=== PATIENT | male | born 1985 | race Caucasian/White ===

== ENCOUNTER 2017-10-28 17:30 | Inpatient (IN) | payer OTHER ==
[~2017-10-28] VITALS: Ht 180.3 cm; Wt 56.7 kg
[2017-10-28] MEDS ORDERED: MIRALAX 17 GM POWD.PACK PO PRN (21:00)
[2017-10-28] MEDS ORDERED: DIAZEPAM 10 MG TABLET PO PRN ×2 (21:00)
[2017-10-28] MEDS ORDERED: diphenhydrAMINE 50 MG CAPSULE PO PRN (21:00)
[2017-10-28] MEDS ORDERED: DIAZEPAM 5 MG TABLET PO PRN (21:00)
[2017-10-28] MEDS ORDERED: LORAZEPAM 2 MG/1 ML VIAL IM PRN (21:00)
[2017-10-28] MEDS ORDERED: ONDANSETRON ODT 4 MG TAB.RAPDIS SL PRN (21:00)
[2017-10-28] MEDS ORDERED: DICYCLOMINE HCL 20 MG TABLET PO PRN (21:00)
[2017-10-28] MEDS ORDERED: MAG HYDROX/AL HYDROX/SIMETH 30 ML LIQUID UDC PO PRN (21:00)
[2017-10-28] MEDS ORDERED: LOPERAMIDE HCL 2 MG CAPSULE PO PRN ×2 (21:00)
[2017-10-28] MEDS ORDERED: NICOTINE POLACRILEX 4 MG GUM-PK OF TEN BC PRN (21:00)
[2017-10-28] MEDS ORDERED: MAGNESIUM HYDROXIDE 30 ML LIQUID UDC PO PRN (21:00)
[2017-10-28] MEDS ORDERED: CLONIDINE HCL 0.1 MG TABLET PO PRN (21:00)
[2017-10-28] MEDS ORDERED: ONDANSETRON 4 MG/2 ML VIAL IM PRN (21:00)
[2017-10-28 21:46] LABS: *AMPHETAMINE, URINE NEGATIVE (NEGATIVE); *BARBITURATE, URINE NEGATIVE (NEGATIVE); *CANNABINOID, URINE NEGATIVE (NEGATIVE); *COCCAINE, URINE NEGATIVE (NEGATIVE); *OPIATE, URINE NEGATIVE (NEGATIVE); *PHENCYCLIDINE SCREEN,URINE NEGATIVE (NEGATIVE)
[2017-10-28 21:48] LABS: BASOPHILS # (AUTO) 0.1 K/uL (0.0-8.0); BASOPHILS % (AUTO) 1.2 % (0.0-2.0); EOSINOPHILS # (AUTO) 0.4 K/uL (0.0-0.7); EOSINOPHILS % (AUTO) 4.5 % (0.0-7.0); HEMOGLOBIN 11.9 g/dL (12.5-16.3); MEAN CORPUSCULAR HEMOGLOBIN 31.7 uug (23.8-33.4); MEAN CORPUSCULAR HGB CONC 33 g/dL (32.5-36.3); MEAN CORPUSCULAR VOLUME 96.1 fL (73.0-96.2); MONOCYTES # (AUTO) 1.7 K/uL (2.0-10.0); MONOCYTES % (AUTO) 17.9 % (0.0-11.0); NEUTROPHILS # (AUTO) 5.3 K/uL (1.8-8.9); NEUTROPHILS % (AUTO) 55.4 % (38.5-71.5); PLATELET COUNT (AUTO) 282 K/uL (152-348); RED BLOOD CELL COUNT(AUTO) 3.75 MIL/uL (4.06-5.63); WHITE BLOOD COUNT (AUTO) 9.6 K/uL (3.6-10.2)
[2017-10-28 21:55] LABS: ETHANOL < 3 MG/DL (0-0)
[2017-10-28 21:57] LABS: ALANINE AMINOTRANSFERASE 64 U/L (16-63); ALKALINE PHOSPHATASE 82 U/L (50-136); AMYLASE 291 U/L (25-115); ASPARTATE AMINOTRANSFERASE 70 U/L (15-37); BILIRUBIN,TOTAL 0.3 mg/dL (0.2-1.0); CARBON DIOXIDE 31 mmol/L (21-32); CHLORIDE 102 mmol/L (98-107); CREATININE 0.7 mg/dL (0.6-1.3); GLUCOSE 112 mg/dL (74-106); MAGNESIUM 1.8 mg/dL (1.8-2.4); POTASSIUM 4.1 mmol/L (3.5-5.1); TOTAL PROTEIN, SERUM 6.7 g/dL (6.4-8.2); UREA NITROGEN, BLOOD 6 mg/dL (7-18)
[2017-10-28] MEDS ORDERED: DIAZEPAM 10 MG TABLET PO SCH (22:00)
[2017-10-28 23:20] LABS: EOSINOPHILS % (MANUAL) 4 % (0-8); LYMPHOCYTES % (MANUAL) 21 % (20-40); MONOCYTES % (MANUAL) 12 % (2-10); NEUTROPHILS % (MANUAL) 63 % (42-75)
[2017-10-29 08:00] VITALS: BP 105/61
[2017-10-29] MEDS: FOLIC ACID 1 MG TABLET PO SCH (08:37)
[2017-10-29] MEDS: DIAZEPAM 10 MG TABLET PO SCH ×4 (08:37→21:04)
[2017-10-29] MEDS: MULTIVITAMINS,THERAPEUTIC TABLET PO SCH (08:37)
[2017-10-29] MEDS: LEVETIRACETAM 500 MG TABLET PO SCH ×2 (08:37→21:04)
[2017-10-29] MEDS: THIAMINE HCL 100 MG TABLET PO SCH (08:37)
[2017-10-29] MEDS: GABAPENTIN 300 MG CAPSULE PO SCH ×3 (08:40→21:04)
[2017-10-29] MEDS: NEOMY/BACITRAC/POLYMI OINT 28.35 GM TUBE TOP SCH ×2 (08:42→17:00)
[2017-10-29] MEDS ORDERED: TUBERCULIN,PURIF.PROT.DERIV. 5 TU/0.1 ML TEST ID ONE (09:00)
[2017-10-29 12:00] VITALS: BP 116/72
[2017-10-29] MEDS ORDERED: CHOL10005 PO (12:21)
[2017-10-29] MEDS ORDERED: FOLI1TAB16 PO (12:21)
[2017-10-29 16:00] VITALS: BP 100/58
[2017-10-29 20:00] VITALS: BP 103/67
[2017-10-30] VITALS: BP 112/76
[2017-10-30 08:00] VITALS: BP 104/69
[2017-10-30 08:06] LABS: HEPATITIS B SURFACE AG Negative (Negative)
[2017-10-30] MEDS: THIAMINE HCL 100 MG TABLET PO SCH (08:47)
[2017-10-30] MEDS: GABAPENTIN 300 MG CAPSULE PO SCH ×4 (08:47→21:23)
[2017-10-30] MEDS: IBUPROFEN 600 MG TABLET PO PRN ×2 (08:47→21:22)
[2017-10-30] MEDS: LEVETIRACETAM 500 MG TABLET PO SCH ×2 (08:47→21:22)
[2017-10-30] MEDS: FOLIC ACID 1 MG TABLET PO SCH (08:47)
[2017-10-30] MEDS: DIAZEPAM 10 MG TABLET PO SCH ×3 (08:47→21:23)
[2017-10-30] MEDS: MULTIVITAMINS,THERAPEUTIC TABLET PO SCH (08:47)
[2017-10-30] MEDS: NEOMY/BACITRAC/POLYMI OINT 28.35 GM TUBE TOP SCH ×2 (08:48→16:35)
[2017-10-30 12:00] VITALS: BP 106/72
[2017-10-30 16:00] VITALS: BP 123/83
[2017-10-30 20:00] VITALS: BP 111/71
[2017-10-31 08:00] VITALS: BP 114/71
[2017-10-31] MEDS: MULTIVITAMINS,THERAPEUTIC TABLET PO SCH (08:54)
[2017-10-31] MEDS: LEVETIRACETAM 500 MG TABLET PO SCH ×2 (08:54→20:43)
[2017-10-31] MEDS: NEOMY/BACITRAC/POLYMI OINT 28.35 GM TUBE TOP SCH ×2 (08:54→17:12)
[2017-10-31] MEDS: FOLIC ACID 1 MG TABLET PO SCH (08:54)
[2017-10-31] MEDS: THIAMINE HCL 100 MG TABLET PO SCH (08:54)
[2017-10-31] MEDS: GABAPENTIN 300 MG CAPSULE PO SCH ×3 (08:55→20:43)
[2017-10-31] MEDS ORDERED: DIAZEPAM 5 MG TABLET PO SCH (09:00)
[2017-10-31 12:00] VITALS: BP 130/78
[2017-10-31] MEDS: DIAZEPAM 5 MG TABLET PO SCH ×2 (12:09→17:11)
[2017-10-31] MEDS: IBUPROFEN 600 MG TABLET PO PRN ×2 (14:37→20:44)
[2017-10-31 16:00] VITALS: BP 119/70
[2017-10-31 20:00] VITALS: BP 117/75
[2017-10-31] MEDS ORDERED: DIAZEPAM 10 MG TABLET PO SCH (21:00)
[2017-11-01 02:44] VITALS: BP 111/76
[2017-11-01 04:00] VITALS: BP 106/79
[2017-11-01 08:00] VITALS: BP 113/68
[2017-11-01] MEDS: FOLIC ACID 1 MG TABLET PO SCH (08:30)
[2017-11-01] MEDS: GABAPENTIN 300 MG CAPSULE PO SCH ×3 (08:30→21:05)
[2017-11-01] MEDS: LEVETIRACETAM 500 MG TABLET PO SCH ×2 (08:30→21:05)
[2017-11-01] MEDS: MULTIVITAMINS,THERAPEUTIC TABLET PO SCH (08:30)
[2017-11-01] MEDS: THIAMINE HCL 100 MG TABLET PO SCH (08:31)
[2017-11-01] MEDS ORDERED: DIAZEPAM 5 MG TABLET PO SCH ×2 (09:00→15:00)
[2017-11-01 09:58] LABS: *BILIRUBIN,URIN NEGATIVE (NEGATIVE); *BLOOD, URINE 2+ (NEGATIVE); *CLARITY,URINE CLEAR (CLEAR); *COLOR,URINE YELLOW (YELLOW); *KETONES,URINE NEGATIVE (NEGATIVE); *PROTEIN,URINE NEGATIVE (NEGATIVE); *UROBILINOGEN,URINE 0.2 E.U./dl (NORMAL); LEUKOCYTE ESTERASE ,URINE NEGATIVE (NEGATIVE); NITRITE, URINE NEGATIVE (NEGATIVE); UGLUCOSE NEGATIVE (NEGATIVE)
[2017-11-01 10:33] LABS: BACTERIA,URINE NONE SEEN /HPF (NONE SEEN); RBC,URINE 50-80 /HPF (0-3); SQUAMOUS EPITHELIAL CELL,UR FEW /HPF (NONE SEEN); WBC,URINE 0-3 /HPF (0-3)
[2017-11-01 12:00] VITALS: BP 122/94
[2017-11-01 16:00] VITALS: BP 127/84
[2017-11-01] MEDS: ACETAMINOPHEN 325 MG TABLET PO PRN ×2 (16:34→22:34)
[2017-11-01 20:00] VITALS: BP 109/72
[2017-11-01] MEDS ORDERED: DIAZEPAM 10 MG TABLET PO SCH (21:00)
[2017-11-01] MEDS: NICOTINE 14 MG/24HR PATCH TD PRN (21:05)
[2017-11-02] VITALS: BP 103/61
[2017-11-02 04:00] VITALS: BP 111/63
[2017-11-02 08:00] VITALS: BP 113/71
[2017-11-02] MEDS: GABAPENTIN 300 MG CAPSULE PO SCH ×3 (08:37→21:21)
[2017-11-02] MEDS: FOLIC ACID 1 MG TABLET PO SCH (08:37)
[2017-11-02] MEDS: THIAMINE HCL 100 MG TABLET PO SCH (08:37)
[2017-11-02] MEDS: MULTIVITAMINS,THERAPEUTIC TABLET PO SCH (08:37)
[2017-11-02] MEDS: DIAZEPAM 5 MG TABLET PO SCH ×2 (08:37→21:21)
[2017-11-02] MEDS: LEVETIRACETAM 500 MG TABLET PO SCH ×2 (08:38→21:22)
[2017-11-02] MEDS: ACETAMINOPHEN 325 MG TABLET PO PRN (08:42)
[2017-11-02] MEDS: LIDOCAINE 5% PATCH TD SCH (10:52)
[2017-11-02 12:00] VITALS: BP 129/89
[2017-11-02] MEDS ORDERED: BACL20TA PO (15:37)
[2017-11-02] MEDS ORDERED: CLON0.1T14 PO (15:37)
[2017-11-02] MEDS ORDERED: IBUP-1955 PO (15:37)
[2017-11-02] MEDS ORDERED: DIPH50CA37 PO (15:37)
[2017-11-02] MEDS ORDERED: DICY20TA28 PO (15:37)
[2017-11-02] MEDS ORDERED: LIDO30AD10 TD (15:37)
[2017-11-02] MEDS ORDERED: LEVE500T9 PO (15:37)
[2017-11-02] MEDS ORDERED: GABA-534 PO ×2 (15:37)
[2017-11-02 16:00] VITALS: BP 124/81
[2017-11-02 20:00] VITALS: BP 128/88
[2017-11-02] MEDS: NICOTINE 14 MG/24HR PATCH TD PRN (21:21)
[2017-11-02] MEDS: BACLOFEN 20 MG TABLET PO PRN (21:21)
[2017-11-03] VITALS: BP 110/81
[2017-11-03 04:00] VITALS: BP 112/83
[2017-11-03 08:00] VITALS: BP 96/62
[2017-11-03] MEDS ORDERED: DIAZEPAM 5 MG TABLET PO SCH (09:00)
[2017-11-03] MEDS: LEVETIRACETAM 500 MG TABLET PO SCH ×2 (09:29→21:48)
[2017-11-03] MEDS: MULTIVITAMINS,THERAPEUTIC TABLET PO SCH (09:31)
[2017-11-03] MEDS: FOLIC ACID 1 MG TABLET PO SCH (09:32)
[2017-11-03] MEDS: GABAPENTIN 300 MG CAPSULE PO SCH ×3 (09:32→21:48)
[2017-11-03] MEDS: THIAMINE HCL 100 MG TABLET PO SCH (09:32)
[2017-11-03] MEDS: BACLOFEN 20 MG TABLET PO PRN ×2 (09:42→21:48)
[2017-11-03] MEDS: LIDOCAINE 5% PATCH TD SCH (09:49)
[2017-11-03 12:00] VITALS: BP 127/78
[2017-11-03 16:00] VITALS: BP 120/86
[2017-11-03 20:00] VITALS: BP 122/85
[2017-11-04] VITALS: BP 116/79
[2017-11-04 04:00] VITALS: BP 110/76
[2017-11-04 08:19] VITALS: BP 117/84
[2017-11-04] MEDS: MULTIVITAMINS,THERAPEUTIC TABLET PO SCH (09:23)
[2017-11-04] MEDS: THIAMINE HCL 100 MG TABLET PO SCH (09:23)
[2017-11-04] MEDS: FOLIC ACID 1 MG TABLET PO SCH (09:23)
[2017-11-04] MEDS: GABAPENTIN 300 MG CAPSULE PO SCH (09:23)
[2017-11-04] MEDS: LIDOCAINE 5% PATCH TD SCH (09:24)
[2017-11-04] MEDS: LEVETIRACETAM 500 MG TABLET PO SCH (09:24)
== END 2017-11-04 11:05 | disposition other institution (70) | DRG 895 ==
LOC: SRC 20:41
PROVIDERS: ADMIT Internal Medicine; ATTEND Internal Medicine
PROC: HZ2ZZZZ Detoxification Services for Substance Abuse Treatment (ICD-10-PCS; principal; 2017-10-28)
PROC: HZ41ZZZ Group Counseling for Substance Abuse Treatment, Behavioral (ICD-10-PCS; 2017-10-29)
PROC: HZ31ZZZ Individual Counseling for Substance Abuse Treatment, Behavioral (ICD-10-PCS; 2017-10-29)
DX: F10.231 Alcohol dependence with withdrawal delirium (principal); K85.20 Alcohol induced acute pancreatitis without necrosis or infection; K70.9 Alcoholic liver disease, unspecified; Y90.9 Presence of alcohol in blood, level not specified; Z81.1 Family history of alcohol abuse and dependence; F41.9 Anxiety disorder, unspecified; Z91.5 Personal history of self-harm; S60.812D Abrasion of left wrist, subsequent encounter; X58.XXXD Exposure to other specified factors, subsequent encounter; F17.210 Nicotine dependence, cigarettes, uncomplicated; D64.9 Anemia, unspecified; G25.81 Restless legs syndrome; F12.90 Cannabis use, unspecified, uncomplicated; F32.9 Major depressive disorder, single episode, unspecified; R73.9 Hyperglycemia, unspecified; T83.83XD Hemorrhage due to genitourinary prosthetic devices, implants and grafts, subsequent encounter; R31.9 Hematuria, unspecified; Y73.8 Miscellaneous gastroenterology and urology devices associated with adverse incidents, not elsewhere classified; M54.5 Low back pain; G89.29 Other chronic pain
CPT/HCPCS: 36415; 70030-TC; 80307; 80346; 83735; 85025; 86580; 86592; 86705; 86803; 87086; 87340; 87806; G0480; Q0163

== ENCOUNTER 2018-06-08 00:33 | Inpatient (IN) | payer OTHER ==
[~2018-06-08] VITALS: Ht 180.3 cm; Wt 56.7 kg
[~2018-06-08 00:33] MED LIST: BACL20TA PO; CHOL10005 PO; CLON0.1T14 PO; DICY20TA28 PO; DIPH50CA37 PO; FOLI1TAB16 PO; GABA-534 PO; IBUP-1955 PO; LEVE500T9 PO; LIDO30AD10 TD
--- NOTE | 2018-06-08 01:33 | NUR ---
PRE-ADMISSION NOTE Pt seen in intake office. Pt appears disheveled and unkempt. Pt is moderately intoxicated and claims to be experiencing s/s of withdrawal. Pt presents w/ avoidant eye contact, anxious mood, and flat affect. Pt is A/O to person, place, time, and purpose. Pt has a steady gait. Pt is acceptable for admittance to [facility].
[2018-06-08] MEDS ORDERED: ONDANSETRON 4 MG/2 ML VIAL IM PRN (02:00)
[2018-06-08] MEDS ORDERED: LOPERAMIDE HCL 2 MG CAPSULE PO PRN ×2 (02:00)
[2018-06-08] MEDS ORDERED: MIRALAX 17 GM POWD.PACK PO PRN (02:00)
[2018-06-08] MEDS ORDERED: ACETAMINOPHEN 325 MG TABLET PO PRN (02:00)
[2018-06-08] MEDS ORDERED: MAGNESIUM HYDROXIDE 30 ML LIQUID UDC PO PRN (02:00)
[2018-06-08] MEDS ORDERED: IBUPROFEN 400 MG TABLET PO PRN (02:00)
[2018-06-08] MEDS ORDERED: DICYCLOMINE HCL 20 MG TABLET PO PRN (02:00)
[2018-06-08] MEDS ORDERED: DIAZEPAM 5 MG TABLET PO PRN (02:00)
[2018-06-08] MEDS ORDERED: DIAZEPAM 10 MG TABLET PO PRN ×2 (02:00)
[2018-06-08] MEDS ORDERED: diphenhydrAMINE 50 MG CAPSULE PO PRN (02:00)
--- NOTE | 2018-06-08 02:26 | NUR ---
ADMISSION NOTE Pt is a 33 y/o male who is being admitted for medically supervised withdrawal from ETOH and Benzodiazepines. The pt is moderately intoxicated and currently beginning to experience withdrawal. Pt appears disheveled w/ unkempt hair. Pt has a flat affect and anxious and worried demeanor. He is A/O to person, place, time, and purpose, but his speech is slow and soft. Pt has avoidant eye contact. Pt states that when he withdraws he typical gets sweats, chills, tremors, nausea, body aches, numbness, and anxiety. Pt states he has a h/o withdrawal induced seizures and delirium. The last time was in October of this year. Pt states current substance abuse as follows: 1. Vodka: 474ml daily for the past 4 days. Before that he was a binge drinker. Pt last drink of 150ml of Vodka and 108ml of beer was on 06/07/18 between 1700 and 2200. Pt first began drinking when he was 15yrs. old. 2. Ativan: 1mg daily for 2 wks. Pts last use of 1mg was on 06/03/18 in the morning. Pt first began using 2.5 wks. ago. He states that he is seeking treatment today because his drinking has negatively affected all areas of his life; career, friends, and family. 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 Pt also states that he needs treatment because I dont want to drink anymore, but Im afraid of having a seizure. This is his second time through detox and treatment, the first being at [facility] in October of this year. Pt states that he never wants to go back through treatment ever again. He states that he is ready to totally to commit to recovery I am ready to do whatever it takes to stop drinking and stay sober. Pt doesnt know where he wants to continue his treatment after detox, but he is open to anything. Pt has a sponsor, but hasnt been to in a while. Pt states his mom and girlfriend are a great support system for him. V/S: P:66, RR:18, SPO2:99, BP:129/91. Pt denies any pain. Pts pulse is strong and regular. Respirations are unlabored and even. Skin is intact. Pt follows a regular diet at home. He has no known allergies. He smokes approximately 40 cigarettes per day. Pt denies any medical or mental health history. Pt doesnt have a PCP or psychiatrist. Pt states he was admitted to [facility] in October of this year and spent 7 days there because he a seizure and they were monitoring him. Pt was educated about the plan of care including detox, group and individual therapy,. And discharge planning. Pt was encouraged to be open and communicate how he is feeling. Pt was given support in choosing recovery. Pt will be monitored and needs met.
[2018-06-08 02:42] LABS: BASOPHILS # (AUTO) 0.1 K/uL (0.0-8.0); BASOPHILS % (AUTO) 0.8 % (0.0-2.0); EOSINOPHILS # (AUTO) 0.1 K/uL (0.0-0.7); EOSINOPHILS % (AUTO) 1.8 % (0.0-7.0); HEMATOCRIT 43.8 % (36.7-47.1); HEMOGLOBIN 15.2 g/dL (12.5-16.3); LYMPHOCYTES # (AUTO) 3.2 K/uL (20.0-40.0); MEAN CORPUSCULAR HGB CONC 35 g/dL (32.5-36.3); MEAN CORPUSCULAR VOLUME 95.1 fL (73.0-96.2); MONOCYTES # (AUTO) 0.5 K/uL (2.0-10.0); MONOCYTES % (AUTO) 6.4 % (0.0-11.0); NEUTROPHILS # (AUTO) 4.2 K/uL (1.8-8.9); PLATELET COUNT (AUTO) 251 K/uL (152-348); WHITE BLOOD COUNT (AUTO) 8.1 K/uL (3.6-10.2)
[2018-06-08] MEDS: ONDANSETRON ODT 4 MG TAB.RAPDIS SL PRN ×2 (02:44→21:09)
--- NOTE | 2018-06-08 02:44 | NUR ---
PRN VALIUM AND ZOFRAN ADMINISTRATION Valium 20mg for CIWA 16 and Zofran for nausea w/ no emesis were given. Will reassess pt in 1 hr.
[2018-06-08 02:59] LABS: BILIRUBIN,TOTAL 0.4 mg/dL (0.2-1.0); CREATININE 0.8 mg/dL (0.6-1.3); MAGNESIUM 1.8 mg/dL (1.8-2.4); POTASSIUM 3.7 mmol/L (3.5-5.1); TOTAL PROTEIN, SERUM 7.9 g/dL (6.4-8.2)
[2018-06-08] MEDS ORDERED: THIAMINE HCL 200 MG/2 ML VIAL IM ONE (03:00)
[2018-06-08 03:01] LABS: *AMPHETAMINE, URINE NEGATIVE (NEGATIVE); *BARBITURATE, URINE NEGATIVE (NEGATIVE); *CANNABINOID, URINE POSITIVE (NEGATIVE); *COCCAINE, URINE NEGATIVE (NEGATIVE); *OPIATE, URINE NEGATIVE (NEGATIVE); *PHENCYCLIDINE SCREEN,URINE NEGATIVE (NEGATIVE)
[2018-06-08 03:30] LABS: THYROID STIMULATING HORMONE 1.891 mIU/mL (0.358-3.740)
--- NOTE | 2018-06-08 03:44 | NUR ---
PRN VALIUM AND ZOFRAN REASSESSMENT Pt states relief from symptoms especially anxiety and nausea. Will continue to monitor pt.
[2018-06-08 04:04] VITALS: BP 127/83
--- NOTE | 2018-06-08 04:04 | NUR ---
CIWA ASSESSMENT CIWA 16. Pt presenting w/ anxiety, restlessness, nausea, pins and needles, and sweats. V/S:T:98.1, P:70, RR:16, SPO2:100, BP:127/83.
--- NOTE | 2018-06-08 07:14 | NUR ---
START OF SHIFT NOTE Endorsed pt to oncoming nurse. Pt is a 33 y/o male A/O to person, place, time, and purpose. Pt was admitted for medically supervised withdrawal from ETOH and Benzodiazepines. Pt began presenting w/ anxious mood, flushing, flat affect, nausea, and pins and needles. Pt denies any S/I or H/I. PRN Valium 20mg and Zofran were given and noted effective. Pts fluid intake was 750ml and he slept for 2hrs. Last CIWA 16 @ 0400. Call light is within reach.
[2018-06-08 08:00] VITALS: BP 102/72
--- NOTE | 2018-06-08 08:00 | NUR ---
Start of Shift Notes/CIWA Assessment: Received endorsement from night nurse. Patient is a 33 year old male admitted for ETOH and BZO withdrawal who was placed on PRNs at this time to manage symptoms related to ETOH withdrawal. Per night report, patient was newly admitted during the night and was given PRN Valium and Zofra. He slept for a total of 3 hours with last CIWA of 16. Patient was seen in his room. Alert and oriented x 4. Appears flushed, disheveled, with visible sweats on forehead. Gross tremors noted to BUE. Denies S/I or H/I noted. Room is odorous. Encouraged patient to maintain his personal hygiene and space. He appears anxious and restless. Shifting from one body position to another but denies any pain. CIWA 13 at this time. Educated patient on his current plan of care for the day and his medication regimen. Encouraged oral fluid intake and encouraged group participation to learn new skills to prevent relapse. All needs met and attended. Support provided. Will continue to monitor.
[2018-06-08] MEDS: THIAMINE HCL 100 MG TABLET PO SCH (08:32)
[2018-06-08] MEDS: FOLIC ACID 1 MG TABLET PO SCH (08:32)
[2018-06-08] MEDS: MULTIVITAMINS,THERAPEUTIC TABLET PO SCH (08:32)
--- NOTE | 2018-06-08 08:32 | NUR ---
Valium 10 mg PO given: CIWA 13, patient presented with facial flushing, sweats, anxiety, agitation, gross tremors and increased restlessness. Medicated patient with Valium 10 mg PO as ordered per CIWA score. Will continue to monitor.
--- NOTE | 2018-06-08 09:32 | NUR ---
Re-assessment: Valium CIWA 11, patient presented with less sweats, less anxious and less agitation noted. PRN Valium effective. Patient continues to appear flushed, gross tremors still noted and intermittent perspiration.
[2018-06-08 12:00] VITALS: BP 108/68
--- NOTE | 2018-06-08 12:06 | NUR ---
CIWA Assessment: CIWA 12, patient continues to present with s/s of withdrawal m/b gross tremors, anxiety, agitation, restlessness, intermittent perspiration, fatigue and generalized discomfort. Patient will be started on 3-day Valium taper as ordered to start at 1500.
[2018-06-08] MEDS: DIAZEPAM 5 MG TABLET PO SCH ×2 (14:48→21:08)
[2018-06-08 16:00] VITALS: BP 111/65
--- NOTE | 2018-06-08 19:00 | NUR ---
End of Shift Notes: Patient initiated his 3-day Valium taper as ordered to manage symptoms related to ETOH withdrawal. VS monitored closely. No significant abnormalities noted. Withdrawal symptoms were closely monitored. Initial CIWA 13, patient presented with gross tremors, facial flushing, anxiety, agitation, diaphoresis, fatigue, difficulty concentrating, and restlessness. Medicated patient Valium 10 mg PO at 0832 with help. Last CIWA 12. Appetite poor. Patient verbalizes that Valium has been effective in reducing his withdrawal symptoms. He was unable to participate in group and activities due to his withdrawal symptoms. All needs met and attended. Will continue to monitor.
--- NOTE | 2018-06-08 19:40 | NUR ---
Start of Shift Note Received a 33 y/o male px, admitted for medically supervised withdrawal from ETOH and Ativan. Px was placed on 3 day Valium taper, started today, 06/08/2018. Last reported CIWA 12 by AM shift nurse. During the rounds at 1940, px is awake on bed in fowlers position, watching TV. Px appears anxious and depressed. He is disheveled and unshaven. He states that his anxiety is 7/10 and complains of nausea. Bilateral hand tremors noted on extended arms. Bed on lowest position, side rails up 2x and call light within reach. Well continue to monitor
[2018-06-08 20:00] VITALS: BP 134/91
--- NOTE | 2018-06-08 20:00 | NUR ---
CIWA 14 On assessment, px appears anxious and depressed. He states that his anxiety is 7/10 and complains of nausea. Bilateral hand tremors noted on extended arms. will continue to monitor
--- NOTE | 2018-06-08 21:08 | NUR ---
PRN medications Px received Zofran 4 mg SL for nausea, Clonidine 0.1 mg PO for anxiety and Benadryl 50 mg PO for insomnia. will continue to monitor
[2018-06-08] MEDS: CLONIDINE HCL 0.1 MG TABLET PO PRN (21:09)
--- NOTE | 2018-06-08 21:40 | NUR ---
PRN Zofran reassessment Px states that his nausea improved after 30 minutes of taking Zofran 4 mg SL.
--- NOTE | 2018-06-08 22:10 | NUR ---
PRN Benadryl and Clonidine reassessment On assessment, px is still awake and states that his anxiety improved from 7/10 to 5-6/10. will continue to monitor
[2018-06-09] VITALS: BP 122/80
--- NOTE | 2018-06-09 | NUR ---
CIWA deferred CIWA deferred due to the px is asleep, to assess if the px is awake per doctor's order. will continue to monitor
[2018-06-09 04:00] VITALS: BP 100/74
--- NOTE | 2018-06-09 04:00 | NUR ---
CIWA 14 Px wakes up and appears anxious. He states that had a weird and bad dream. His anxiety is about 6/10 and complains of heartburns. Bilateral hand tremors noted on extended arms. will continue to monitor
[2018-06-09] MEDS: CLONIDINE HCL 0.1 MG TABLET PO PRN (04:45)
[2018-06-09] MEDS ORDERED: MAG HYDROX/AL HYDROX/SIMETH 30 ML LIQUID UDC PO PRN (04:45)
--- NOTE | 2018-06-09 04:45 | NUR ---
PRN Maalox and Clonidine Px woke up around 4 AM, complains of heart edmonds and increase anxiety due to a bad dream. He was given Maalox 30 ml PO and Clonidine 0.1 mg PO. will continue to monitor
--- NOTE | 2018-06-09 05:45 | NUR ---
PRN Clonidine and Maalox reassessment Reassessment deferred due to the px is already asleep. will continue to monitor
--- NOTE | 2018-06-09 07:05 | NUR ---
End of Shift Note During the shift at 2108, px received Zofran 4 mg SL for nausea, Benadryl 50 mg for insomnia, Clonidine 0.1 mg PO for anxiety, they were effective. At 444, px woke up and complains of anxiety and heartburns. He received Maalox 30 ml PO and Clonidine 0.1 mg PO. Oral intake of 1200 ml, voided 3x and has BM 3x. He slept for the total of 6 hours. Last CIWA 14. Bed on lowest position, side rails up 2x and call light within reach. Px endorsed to AM shift nurse.
--- NOTE | 2018-06-09 07:15 | NUR ---
Start of Shift Note Pt. is a 33 y/o male admitted for the medically managed withdrawal from ETOH, and Benzodiazepines. Pt. was placed on a 3 day valium taper to manage withdrawal symptoms. Endorse from previous shift pt. presented with insomnia, anxiety, dyspepsia, and agitation. Received pt. in room. Pt. in bed with eyes closed. Pt.'s room is cluttered with personal belongings, and pt.'s linens are messy and falling off the bed. No signs of SOB or distress noted. Safety measures in place. Will continue to monitor pt.'s behavior for safety.
[2018-06-09 08:00] VITALS: BP 95/56
--- NOTE | 2018-06-09 08:00 | NUR ---
CIWA Assessment CIWA of 14. Pt. in room presenting with anxiety, tremors, diaphoresis, and agitation. Will give medications as ordered. Will continue to monitor pt.'s behavior for safety.
[2018-06-09 08:07] LABS: HEPATITIS B SURFACE AG Negative (Negative)
[2018-06-09] MEDS: DIAZEPAM 5 MG TABLET PO SCH ×2 (08:41→21:10)
[2018-06-09] MEDS: FOLIC ACID 1 MG TABLET PO SCH (08:41)
[2018-06-09] MEDS: MULTIVITAMINS,THERAPEUTIC TABLET PO SCH (08:41)
[2018-06-09] MEDS: THIAMINE HCL 100 MG TABLET PO SCH (08:41)
[2018-06-09] MEDS ORDERED: TUBERCULIN,PURIF.PROT.DERIV. 5 TU/0.1 ML TEST ID ONE (09:00)
--- NOTE | 2018-06-09 11:20 | NUR ---
PRN Medication Pt. in room compliant of abdominal craps. PRN Bentyl given at this time to manage withdrawal symptoms. Will continue to monitor pt.'s behavior for safety and medication effectiveness.
[2018-06-09 12:00] VITALS: BP 94/55
--- NOTE | 2018-06-09 12:00 | NUR ---
CIWA Assessment CIWA of 12. Pt. in room presenting with anxiety, tremors, diaphoresis, and agitation. Pt. compliant with medication regiment and treatment plan. Will continue to monitor pt.'s behavior for safety.
--- NOTE | 2018-06-09 12:20 | NUR ---
PRN Re-Assessment Pt. in room and reports an improvement in symptoms. Medication effective. Will continue to monitor pt.'s behavior for safety.
--- NOTE | 2018-06-09 14:17 | NUR ---
Therapist prompted client to attend group therapy.
[2018-06-09 16:00] VITALS: BP 119/70
[2018-06-09] MEDS ORDERED: LORAZEPAM 2 MG/1 ML VIAL IM PRN (18:15)
--- NOTE | 2018-06-09 19:00 | NUR ---
End of Shift Note Pt. is a 33 y/o male admitted for the medically managed withdrawal from ETOH, and Benzodiazepines. Pt. was placed on a 3 day valium taper to manage withdrawal symptoms. Throughout shift pt. presented with abdominal cramps, anxiety, dyspepsia, and agitation. PRN Bentyl given to manage withdrawal symptoms. Safety measures in place. Will endorse pt.'s care to oncoming shift.
--- NOTE | 2018-06-09 19:30 | NUR ---
Start of Shift Patient Received. Per endorsement, patient continues on a modified 3 day Valium taper. Patient verbalized increased stomach cramps and received PRN Bentyl with medication noted to be effective. Last noted CIWA 11. Upon rounds, patient is noted in his room, awake, alert and verbally responsive. He is noted to be disheveled, uncombed hair, and unshaved. Patient avoids eye contact and is noted to be restless, anxious, and irritable. Patient is able to verbalize that taper medications have been effective in minimizing signs and symptoms of withdrawal. All needs attended to promptly. Will continue plan of care as ordered.
[2018-06-09 20:30] VITALS: BP 122/74
[2018-06-09] MEDS ORDERED: TRAZODONE 50 MG TABLET PO PRN (21:15)
--- NOTE | 2018-06-09 21:15 | NUR ---
PRN Medication Administration Patient is noted to request sleep medication and states "the Benadryl makes me disoriented with broken sleep. I used to receive Trazodone 50mg and it worked better for me." Relayed to MD with order to D/C Benadryl and orders for PRN Trazodone PRN HS. Dose administered as ordered. Will continue to monitor.
--- NOTE | 2018-06-09 22:15 | NUR ---
PRN Medication Reassessment Patient is noted in bed with eyes closed. Breathing even and non labored. No signs of facial grimacing or restlessness noted. PRN Trazodone noted to be effective. Will continue to monitor.
--- NOTE | 2018-06-10 00:46 | NUR ---
CIWA Assessment Patient is noted in bed with eyes closed. Breathing even and non labored. Patient refused vitals. CIWA not able to complete assessment as per order. No restlessness or discomfort noted. Will continue to monitor.
[2018-06-10] MEDS ORDERED: TRAZODONE 50 MG TABLET PO PRN ×2 (07:15→12:45)
--- NOTE | 2018-06-10 07:19 | NUR ---
End of Shift Patient is in bed with eyes closed. Breathing even and non labored. No signs of restlessness or discomfort noted. Patient continues on a modified 3 day Valium taper. Patient was noted with increased anxiety, restlessness, irritability, insomnia, and increased sweats. Patient is noted to be disheveled, uncombed hair, unshaved, and odorous. Patient received PRN Trazodone for inability of falling asleep with medication noted to be effective. Patient noted to sleep a total of 7 hours. Last noted CIWA 13. All needs attended to promptly. Will continue plan of care as ordered.
[2018-06-10 08:00] VITALS: BP 107/61
--- NOTE | 2018-06-10 08:00 | NUR ---
Start of Shift Notes/CIWA Assessment: Received endorsement from night nurse. Patient is a 33 year old male admitted for ETOH and BZO withdrawal who was placed on a 3-day Valium taper as ordered to manage symptoms related to ETOH withdrawal. Per night report, patient was not given any PRNs. Last CIWA 13. Slept for 7 hours. Patient was seen in his room. Alert and oriented x 4. Appears flushed, disheveled, uncombed hair, with gross tremors noted to BUE. Denies S/I or H/I noted. Room is odorous and messy. Poor regards to hygiene noted. He states "I'm still having trouble staying asleep." Encouraged patient to maintain his personal hygiene and space. He appears anxious and restless. Shifting from one body position to another but denies any pain. CIWA 14 at this time. Educated patient on his current plan of care for the day and his medication regimen. Encouraged oral fluid intake and encouraged group participation to learn new skills to prevent relapse. All needs met and attended. Support provided. Will continue to monitor.
[2018-06-10] MEDS: FOLIC ACID 1 MG TABLET PO SCH (08:42)
[2018-06-10] MEDS: THIAMINE HCL 100 MG TABLET PO SCH (08:42)
[2018-06-10] MEDS: MULTIVITAMINS,THERAPEUTIC TABLET PO SCH (08:42)
[2018-06-10] MEDS ORDERED: DIAZEPAM 5 MG TABLET PO SCH (09:00)
--- NOTE | 2018-06-10 11:04 | NUR ---
Therapist prompted client to attend group therapy.
[2018-06-10 12:00] VITALS: BP 126/86
--- NOTE | 2018-06-10 12:07 | NUR ---
CIWA Assessment: CIWA 12, patient continues to present with s/s of withdrawal m/b increased anxiety, agitation, gross tremors, difficulty concentrating and fatigue. Offered PRNs. Will continue to monitor.
[2018-06-10] MEDS ORDERED: TRAZODONE 100 MG TABLET PO PRN (12:45)
[2018-06-10] MEDS ORDERED: TRAZ-214 PO (13:03)
[2018-06-10] MEDS ORDERED: CLON0.1T14 PO (13:03)
[2018-06-10 16:00] VITALS: BP 131/85
--- NOTE | 2018-06-10 16:15 | NUR ---
CIWA Assessment: CIWA 10, patient continues to present with s/s of withdrawal m/b increased anxiety, agitation, gross tremors, difficulty concentrating and fatigue. Offered PRNs. Will continue to monitor.
--- NOTE | 2018-06-10 19:01 | NUR ---
End of Shift Notes: Patient completed his 3-day Valium taper to manage symptoms related to ETOH withdrawal. With discharge plans tomorrow. VS monitored closely. No significant abnormalities noted. Withdrawal symptoms were closely monitored. Initial CIWA 14, patient presented with gross tremors, facial flushing, anxiety, agitation, diaphoresis, fatigue, difficulty concentrating, insomnia and generalized discomfort. Last CIWA 10. Appetite fair. Patients Trazodone adjusted by Dr. Holguin. Patient verbalizes that Valium has been effective in reducing his withdrawal symptoms. Requires encouragement to attend group and activities due to episodes of withdrawn and self isolation. All needs met and attended. Will continue to monitor.
--- NOTE | 2018-06-10 19:30 | NUR ---
START OF SHIFT Received patient awake, alert, and oriented x4. Per endorsement, patient is admitted for ETOH and benzo withdrawal and is to be D/Cd home tomorrow at 0900. His Trazodone dosage was increased from 50mg to 100mg. Last CIWA score was 10 noted at 1600. Upon assessment, patient denies any S/S of distress or pain. Patient was lying in bed watching television with a disheveled appearance, unkempt hair, and a passive demeanor. Will continue to monitor.
--- NOTE | 2018-06-10 20:00 | NUR ---
CIWA Assessment Patient is noted with increased anxiety, sweats, restlessness, insomnia, and verbalizing intermittent sweats. CIWA noted to be 9. Will continue to monitor.
[2018-06-10 20:19] VITALS: BP 119/69
--- NOTE | 2018-06-10 22:21 | NUR ---
PRN Medication Administration patient is noted verbalizing inability of falling asleep. PRN Trazodone administered as per order. Will continue to monitor.
--- NOTE | 2018-06-10 23:20 | NUR ---
PRN Medication Reassessment Patient is noted in bed with eyes closed. Breathing even and non labored. No signs of restlessness or discomfort noted. PRN Trazodone noted to be effective. Will continue to monitor.
--- NOTE | 2018-06-11 00:20 | NUR ---
VITALS AND CIWA DEFERRED Patient noted to be lying in bed with eyes closed and breathing even and unlabored. Vital signs refused and CIWA assessment deferred. Will continue to monitor.
[2018-06-11 00:37] VITALS: BP 113/64
--- NOTE | 2018-06-11 07:15 | NUR ---
END OF SHIFT Patient is noted in to be lying in bed with eyes closed and respirations even and unlabored. He is admitted for ETOH and benzo withdrawal and is to be discharged today. His 3 day Valium taper has been completed. Last CIWA score was 9 @ 1999. Pt had no c/o pain or distress throughout the shift. PRN Trazodone 100 mg administered for restlessness and inability to sleep. PRN med noted to be effective. Patient slept for 6.5 hours, drank 855 mL of fluids, and voided 2 times. Endorsed to AM shift nurse.
[2018-06-11 08:00] VITALS: BP 100/64
--- NOTE | 2018-06-11 08:00 | NUR ---
Start of Shift Notes/CIWA Assessment: Received endorsement from night nurse. Patient is a 33 year old male admitted for ETOH and BZO withdrawal who was placed on a 3-day Valium taper as ordered to manage symptoms related to ETOH withdrawal. Patient completed taper and will be discharging today. Per night report, patient given PRN Traza. Last CIWA 9. Slept for 9 hours. Patient was seen in his room. Alert and oriented x 4. Appears flushed, disheveled, uncombed hair. Encouraged maintenance of personal hygiene, appearance and space. Denies S/I or H/I noted. Room is odorous and messy. Poor regards to hygiene noted. He states "That Trazodone worked for me. I feel more rested." He appears anxious regarding the discharge process. CIWA 9 at this time. Educated patient on his current plan of care for the day and his medication regimen. Encouraged oral fluid intake. Support provided. All needs met and attended. Will continue to monitor.
[2018-06-11] MEDS: THIAMINE HCL 100 MG TABLET PO SCH (09:27)
[2018-06-11] MEDS: FOLIC ACID 1 MG TABLET PO SCH (09:27)
[2018-06-11] MEDS: MULTIVITAMINS,THERAPEUTIC TABLET PO SCH (09:27)
--- NOTE | 2018-06-11 09:50 | NUR ---
Discharge: Patient education provided regarding patient's discharge instructions. Patient verbalized good understanding of all teachings. Patient did not bring in any home meds. [employer] cabinet checked. Cassette checked. Cigarettes returned to the patient and his belongings and valuables. Patient was discharged at this time and escorted off the unit by [employer]. CIWA 9. VS stable. Denies S/I or H/I noted. No AV hallucinations noted.
== END 2018-06-11 09:50 | disposition home or self-care (01) | DRG 895 ==
LOC: SRC 00:49
PROVIDERS: ADMIT Family Medicine Addiction Medicine; ATTEND Family Medicine Addiction Medicine
PROC: HZ2ZZZZ Detoxification Services for Substance Abuse Treatment (ICD-10-PCS; principal; 2018-06-08)
PROC: HZ31ZZZ Individual Counseling for Substance Abuse Treatment, Behavioral (ICD-10-PCS; 2018-06-09)
DX: F10.230 Alcohol dependence with withdrawal, uncomplicated (principal); G40.509 Epileptic seizures related to external causes, not intractable, without status epilepticus; Y90.6 Blood alcohol level of 120-199 mg/100 ml; K71.9 Toxic liver disease, unspecified; K70.9 Alcoholic liver disease, unspecified; F41.1 Generalized anxiety disorder; F13.230 Sedative, hypnotic or anxiolytic dependence with withdrawal, uncomplicated; Z81.1 Family history of alcohol abuse and dependence; F17.210 Nicotine dependence, cigarettes, uncomplicated; Z79.899 Other long term (current) drug therapy; F12.10 Cannabis abuse, uncomplicated; F32.9 Major depressive disorder, single episode, unspecified
CPT/HCPCS: 36415; 80307; 80349; 83690; 83735; 84443; 85025; 86592; 86705; 86803; 87340; 87806; A4663; G0480; Q0162; Q0163